=== PATIENT | male | born 1950 | race Caucasian/White ===

== ENCOUNTER 2020-06-07 22:31 | Inpatient (IN) ==
[2020-06-08] MEDS ORDERED: Ipratropium/Albuterol Neb 3 ML IH ONE ×2 (00:42→08:00)
[2020-06-08] MEDS ORDERED: 0.9 % Sodium Chloride 1,000 ML IVC SCH (00:45)
[2020-06-08] MEDS ORDERED: Acetaminophen 325 MG TABLET PO PRN (00:45)
[2020-06-08] MEDS ORDERED: Naloxone 0.4 MG/ML INJ IVP PRN (00:45)
[2020-06-08] MEDS ORDERED: *HR* Promethazine 25 MG/ML VIAL IVP PRN (00:45)
[2020-06-08 02:30] LABS: Basophils # 0.1 K/mcL (0.0-0.2); Basophils % 0.5 %; Eosinophils # 0.1 K/mcL (0.0-0.6); Eosinophils % 0.9 %; Hematocrit 35.5 % (37.5-50.1); Hemoglobin 10.9 g/dL (12.9-16.9); Immature Granulocytes % 0.8 % (0-4); Lymphocytes # 0.4 K/mcL (0.6-4.6); Lymphocytes % 3.4 %; Mean Corpuscular HGB Conc 30.7 g/dL (31.6-35.5); Mean Corpuscular Hemoglobin 29.9 pg (28.0-33.3); Mean Corpuscular Volume 97.3 fL (83.0-100.0); Mean Platelet Volume 9.8 fL (9.4-12.4); Monocytes % 9.3 %; Neutrophils # 8.7 K/mcL (1.6-8.9); Platelet Count 272 K/mcL (140-400); Red Blood Count 3.65 M/mcL (4.19-5.50); Red Cell Distribution Width 13.2 % (11.5-14.5); Segmented Neutrophils % 85.1 %; White Blood Count 10.3 K/mcL (4.3-11.1)
[2020-06-08 02:46] LABS: Alanine Aminotransferase 14 Units/L (7-52); Albumin 2.8 g/dL (3.5-5.7); Albumin/Globulin Ratio 0.9 (1.1-2.2); Alkaline Phosphatase 124 Units/L (34-104); Aspartate Amino Transferase 16 Units/L (13-39); BUN/Creatinine Ratio 24 (6-26); Bilirubin,Total 0.5 mg/dL (0.3-1.0); Blood Urea Nitrogen 12 mg/dL (8-23); Calcium 8.7 mg/dL (8.6-10.3); Carbon Dioxide 27 mEq/L (23-29); Chloride 99 mEq/L (98-107); Globulin 3.2 g/dL (2.4-3.5); Glucose 108 mg/dL (70-105); Magnesium 1.7 mg/dL (1.6-2.6); Osmolality,Calculated 278 (280-300); Potassium 3.5 mEq/L (3.5-5.1); Sodium 134 mEq/L (136-145); eGFR For African Americans > 60 (> 60); eGFR For Non-African Americans > 60 (> 60)
[2020-06-08] MEDS ORDERED: *HR* OxyCODONE/APAP 10/325 TABLET PO PRN (03:50)
[2020-06-08] MEDS: methylPREDNISolone 125 MG/2 ML VIAL IVP SCH ×3 (04:19→15:42)
[2020-06-08] MEDS: Levalbuterol Neb 1.25 MG/3 ML IH SCH ×6 (04:55→23:35)
[2020-06-08] MEDS ORDERED: *HR* OxyCODONE/APAP 10/325 TABLET PO SCH (06:00)
[2020-06-08] MEDS ORDERED: 0.9 % Sodium Chloride 1,000 ML IV ONE (07:05)
[2020-06-08] MEDS ORDERED: Furosemide 40 MG/4 ML VIAL ONE (07:21)
[2020-06-08] MEDS ORDERED: Furosemide 40 MG/4 ML VIAL IVP ONE (07:24)
[2020-06-08] MEDS ORDERED: Ipratropium/Albuterol Neb 3 ML ONE (07:29)
[2020-06-08 07:32] LABS: ABG Base Excess 1 mEq/L (-2 to 3); ABG HCO3 31 mEq/L (21-27); ABG Oxygen Saturation 99 % (95-98); ABG PCO2 79 mmHg (35-45); ABG PO2 157 mmHg (85-104); ABG TCO2 33 mEq/L (20-26)
[2020-06-08 07:34] LABS: BUN/Creatinine Ratio 26 (6-26); Blood Urea Nitrogen 13 mg/dL (8-23); Carbon Dioxide 29 mEq/L (23-29); Chloride 100 mEq/L (98-107); Glucose 124 mg/dL (70-105); Osmolality,Calculated 284 (280-300); Potassium 4.2 mEq/L (3.5-5.1); Sodium 136 mEq/L (136-145); eGFR For African Americans > 60 (> 60); eGFR For Non-African Americans > 60 (> 60)
[2020-06-08] MEDS ORDERED: DilTIAZem 50 MG in 0.9 % Sodium Chloride 40 ML IVC SCH (07:45)
[2020-06-08] MEDS ORDERED: Dexmedetomidine HCl 400 MCG/100 ML MLS IVC ONE (07:59)
[2020-06-08] MEDS: DilTIAZem 50 MG/50 ML IV.SOLN IVC SCH ×2 (08:00→21:30)
[2020-06-08] MEDS ORDERED: Perflutren Lipid Microsphere 1.3 ML in 0.9 % Sodium Chloride 8.7 ML IVP PRN (08:33)
[2020-06-08 08:45] LABS: Troponin I 0.04 ng/mL (< 0.04)
[2020-06-08] MEDS ORDERED: *HR* Enoxaparin 40 MG/0.4 ML SYRINGE SQ SCH (09:00)
[2020-06-08] MEDS: FentaNYL (PF) 1,000 MCG/100 ML IV.SOLN IVC SCH ×2 (10:00→19:34)
[2020-06-08] MEDS ORDERED: *HR* Midazolam HCl 5 MG/5 ML VIAL IVP ONE ×3 (10:18→14:37)
[2020-06-08] MEDS ORDERED: *HR* Rocuronium Bromide 50 MG/5 ML VIAL ONE (10:22)
[2020-06-08] MEDS: Piperacillin/Tazobactam 3.375 GM in 0.9 % Sodium Chloride Mini Bag 100 ML IVPB SCH ×2 (10:22→15:43)
[2020-06-08] MEDS ORDERED: *HR* Rocuronium Bromide 50 MG/5 ML VIAL IVP ONE ×2 (10:30→13:30)
[2020-06-08 10:38] LABS: Hematocrit 35.7 % (37.5-50.1); Hemoglobin 11.3 g/dL (12.9-16.9); Mean Corpuscular HGB Conc 31.7 g/dL (31.6-35.5); Mean Corpuscular Hemoglobin 30.9 pg (28.0-33.3); Mean Corpuscular Volume 97.5 fL (83.0-100.0); Mean Platelet Volume 9.9 fL (9.4-12.4); Monocytes # 0.1 K/mcL (0.0-1.3); Platelet Count 244 K/mcL (140-400); Red Blood Count 3.66 M/mcL (4.19-5.50); Red Cell Distribution Width 13.3 % (11.5-14.5); White Blood Count 10.6 K/mcL (4.3-11.1)
[2020-06-08 11:13] LABS: ABG Base Excess 5 mEq/L (-2 to 3); ABG HCO3 30 mEq/L (21-27); ABG Oxygen Saturation 100 % (95-98); ABG PCO2 49 mmHg (35-45); ABG PO2 444 mmHg (85-104); ABG TCO2 32 mEq/L (20-26); Blood Gas VT 480 cc
[2020-06-08] MEDS ORDERED: Artificial Tears SOLN 15 ML BOTTLE BOTH EYES PRN (11:16)
[2020-06-08 11:21] LABS: Lymphocytes # 0.2 K/mcL (0.6-4.6); Neutrophils # 10.3 K/mcL (1.6-8.9)
[2020-06-08 11:22] LABS: Platelet Estimate Normal (Normal)
[2020-06-08 11:23] LABS: Toxic Granulation Present (Not Present)
[2020-06-08] MEDS ORDERED: *HR* Heparin 5,000 UNIT/ML VIAL IVP PRN ×2 (11:38)
[2020-06-08] MEDS: Artificial Tears SOLN 15 ML BOTTLE BOTH EYES SCH ×3 (12:10→19:41)
[2020-06-08] MEDS: Azithromycin 500 MG in 0.9 % Sodium Chloride 250 ML IVPB SCH (12:10)
[2020-06-08] MEDS: Heparin 25,000 UNIT/250 ML D5W 25,000 UNIT/250 ML IV.SOLN IVC SCH (12:38)
[2020-06-08] MEDS: Aspirin 81 MG TAB.CHEW PO SCH (12:47)
[2020-06-08] MEDS ORDERED: D5% in Water 1,000 ML IVC PRN (13:20)
[2020-06-08] MEDS ORDERED: *HR* Dextrose 50 % in Water (Vial) 50 ML VIAL IVP PRN (13:20)
[2020-06-08] MEDS ORDERED: Dextrose Gel 15 GM/37.5 ML TUBE PO PRN ×2 (13:20)
[2020-06-08] MEDS ORDERED: *HR* Midazolam HCl 2 MG/2 ML VIAL IVP ONE (13:30)
[2020-06-08] MEDS ORDERED: *HR* Etomidate 20 MG/10 ML AMPUL IVP ONE (13:30)
[2020-06-08 13:39] LABS: Heparin anti-factor XA UFH 0.23 IU/mL (0.30-0.70)
[2020-06-08 13:40] LABS: Prothrombin Time 11.5 Seconds (9.4-12.1)
[2020-06-08] MEDS: Dexmedetomidine HCl 400 MCG/100 ML MLS IVC SCH (16:55)
[2020-06-08 17:19] LABS: Source of Body Fluid RIGHT LOWER LOBE LUN
[2020-06-08 17:20] LABS: Appearance of Body Fluid Slightly Hazy (Clear); Volume of Body Fluid 20 mL
[2020-06-08] MEDS: Insulin LISPRO 300 UNITS/3 ML VIAL SQ SCH (18:21)
[2020-06-08] MEDS: Norepinephrine 4 MG/254 ML IV.SOLN IVC SCH (19:37)
[2020-06-08] MEDS: Chlorhexidine Rinse 15 ML MOUTHWASH MM SCH (19:41)
[2020-06-08] MEDS: Furosemide 40 MG/4 ML VIAL IVP SCH (19:54)
[2020-06-08] MEDS ORDERED: Mirtazapine 15 MG TABLET PO SCH (21:00)
[2020-06-08 22:37] LABS: BUN/Creatinine Ratio 30 (6-26); Blood Urea Nitrogen 17 mg/dL (8-23); Calcium 9.2 mg/dL (8.6-10.3); Carbon Dioxide 29 mEq/L (23-29); Chloride 98 mEq/L (98-107); Glucose 137 mg/dL (70-105); Magnesium 1.6 mg/dL (1.6-2.6); Osmolality,Calculated 288 (280-300); Potassium 3.5 mEq/L (3.5-5.1); Sodium 137 mEq/L (136-145); eGFR For African Americans > 60 (> 60); eGFR For Non-African Americans > 60 (> 60)
[2020-06-08] MEDS ORDERED: Potassium Chloride 20 MEQ, Lidocaine 1% 2 ML in 0.9 % Sodium Chloride 250 ML IVPB ONE (22:48)
[2020-06-09] MEDS: methylPREDNISolone 125 MG/2 ML VIAL IVP SCH ×3 (00:15→16:01)
[2020-06-09] MEDS: Piperacillin/Tazobactam 3.375 GM in 0.9 % Sodium Chloride Mini Bag 100 ML IVPB SCH ×3 (00:16→16:05)
[2020-06-09] MEDS: Artificial Tears SOLN 15 ML BOTTLE BOTH EYES SCH ×6 (00:17→20:40)
[2020-06-09] MEDS: Insulin LISPRO 300 UNITS/3 ML VIAL SQ SCH ×4 (00:17→17:48)
[2020-06-09] MEDS: DilTIAZem 50 MG/50 ML IV.SOLN IVC SCH ×2 (02:31→13:32)
[2020-06-09] MEDS: Dexmedetomidine HCl 400 MCG/100 ML MLS IVC SCH (02:59)
[2020-06-09 03:14] LABS: Basophils % 0.1 %; Hematocrit 33.5 % (37.5-50.1); Hemoglobin 10.6 g/dL (12.9-16.9); Immature Granulocytes % 0.6 % (0-4); Lymphocytes # 0.1 K/mcL (0.6-4.6); Lymphocytes % 1.4 %; Mean Corpuscular HGB Conc 31.6 g/dL (31.6-35.5); Mean Corpuscular Hemoglobin 30.9 pg (28.0-33.3); Mean Corpuscular Volume 97.7 fL (83.0-100.0); Monocytes # 0.2 K/mcL (0.0-1.3); Monocytes % 1.8 %; Platelet Count 214 K/mcL (140-400); Red Blood Count 3.43 M/mcL (4.19-5.50); Red Cell Distribution Width 13.2 % (11.5-14.5); Segmented Neutrophils % 96.1 %; White Blood Count 8.9 K/mcL (4.3-11.1)
[2020-06-09] MEDS: Levalbuterol Neb 1.25 MG/3 ML IH SCH ×6 (03:21→23:42)
[2020-06-09 03:29] LABS: Alanine Aminotransferase 11 Units/L (7-52); Albumin 2.7 g/dL (3.5-5.7); Albumin/Globulin Ratio 0.9 (1.1-2.2); Alkaline Phosphatase 110 Units/L (34-104); Aspartate Amino Transferase 15 Units/L (13-39); BUN/Creatinine Ratio 33 (6-26); Bilirubin,Total 0.5 mg/dL (0.3-1.0); Blood Urea Nitrogen 18 mg/dL (8-23); Calcium 9.1 mg/dL (8.6-10.3); Carbon Dioxide 28 mEq/L (23-29); Chloride 99 mEq/L (98-107); Glucose 140 mg/dL (70-105); Magnesium 2.1 mg/dL (1.6-2.6); Osmolality,Calculated 288 (280-300); Phosphorous 3.7 mg/dL (2.7-4.5); Potassium 3.8 mEq/L (3.5-5.1); Sodium 137 mEq/L (136-145); Total Protein 5.7 g/dL (6.4-8.9); eGFR For African Americans > 60 (> 60); eGFR For Non-African Americans > 60 (> 60)
[2020-06-09 03:34] LABS: Neutrophils # 8.6 K/mcL (1.6-8.9)
[2020-06-09 04:53] LABS: ABG Base Excess 4 mEq/L (-2 to 3); ABG HCO3 29 mEq/L (21-27); ABG Oxygen Saturation 90 % (95-98); ABG PCO2 43 mmHg (35-45); ABG PH 7.44 pH Units (7.32-7.45); ABG PO2 57 mmHg (85-104); ABG TCO2 30 mEq/L (20-26); Blood Gas Modality ASSIST CONTROL; Blood Gas VT 480 cc
[2020-06-09] MEDS: FentaNYL (PF) 1,000 MCG/100 ML IV.SOLN IVC SCH ×2 (05:13→11:45)
[2020-06-09] MEDS: Chlorhexidine Rinse 15 ML MOUTHWASH MM SCH ×2 (08:58→20:36)
[2020-06-09 10:14] LABS: Lactate Dehydrogenase 229 Units/L (140-271)
[2020-06-09] MEDS: Aspirin 81 MG TAB.CHEW PO SCH (10:40)
[2020-06-09 11:02] LABS: RBC,Pleural Fluid 3000 RBC/mcL
[2020-06-09 11:21] LABS: Total Protein,Pleural Fluid 3.2 g/dL
[2020-06-09 11:27] LABS: Appearance of Pleural Fl Cloudy (Clear)
[2020-06-09] MEDS: Azithromycin 500 MG in 0.9 % Sodium Chloride 250 ML IVPB SCH (13:59)
[2020-06-09] MEDS ORDERED: *HR* Heparin 5,000 UNIT/ML VIAL SQ SCH (14:00)
[2020-06-09] MEDS: Norepinephrine 4 MG/254 ML IV.SOLN IVC SCH (16:00)
[2020-06-09] MEDS ORDERED: Naloxone 0.4 MG/ML INJ IVP PRN (17:21)
[2020-06-09] MEDS ORDERED: D5% in Water 1,000 ML IVC PRN (17:21)
[2020-06-09] MEDS ORDERED: Acetaminophen 325 MG TABLET PO PRN (17:21)
[2020-06-09] MEDS ORDERED: Norepinephrine 4 MG/254 ML IV.SOLN IVC SCH (17:21)
[2020-06-09] MEDS ORDERED: Artificial Tears SOLN 15 ML BOTTLE BOTH EYES PRN (17:21)
[2020-06-09] MEDS ORDERED: Dextrose Gel 15 GM/37.5 ML TUBE PO PRN ×2 (17:21)
[2020-06-09] MEDS ORDERED: *HR* Dextrose 50 % in Water (Vial) 50 ML VIAL IVP PRN (17:21)
[2020-06-09] MEDS ORDERED: *HR* Promethazine 25 MG/ML VIAL IVP PRN (17:21)
[2020-06-09] MEDS: *HR* OxyCODONE/APAP 10/325 TABLET PO PRN (17:51)
[2020-06-09] MEDS: Mirtazapine 15 MG TABLET PO SCH (20:35)
[2020-06-09] MEDS: *HR* Heparin 5,000 UNIT/ML VIAL SQ SCH (20:35)
[2020-06-09] MEDS: Nicotine 21 MG PATCH.TD24 TD SCH (20:48)
[2020-06-10] MEDS: DilTIAZem 50 MG/50 ML IV.SOLN IVC SCH ×3 (00:05→17:32)
[2020-06-10] MEDS: Piperacillin/Tazobactam 3.375 GM in 0.9 % Sodium Chloride Mini Bag 100 ML IVPB SCH ×3 (00:08→17:08)
[2020-06-10] MEDS: methylPREDNISolone 125 MG/2 ML VIAL IVP SCH ×3 (00:09→17:07)
[2020-06-10] MEDS: Artificial Tears SOLN 15 ML BOTTLE BOTH EYES SCH ×5 (00:24→17:38)
[2020-06-10] MEDS: Insulin LISPRO 300 UNITS/3 ML VIAL SQ SCH ×3 (00:52→13:17)
[2020-06-10] MEDS: Levalbuterol Neb 1.25 MG/3 ML IH SCH ×5 (03:49→19:53)
[2020-06-10] MEDS: *HR* OxyCODONE/APAP 10/325 TABLET PO PRN ×2 (05:35→21:10)
[2020-06-10] MEDS: *HR* Heparin 5,000 UNIT/ML VIAL SQ SCH ×3 (05:35→20:59)
[2020-06-10] MEDS: Heparin 25,000 UNIT/250 ML D5W 25,000 UNIT/250 ML IV.SOLN IVC SCH (07:35)
[2020-06-10] MEDS: Furosemide 40 MG/4 ML VIAL IVP SCH (07:35)
[2020-06-10] MEDS: Sennosides 8.6 MG TABLET PO SCH (08:07)
[2020-06-10] MEDS: Nicotine 21 MG PATCH.TD24 TD SCH (08:08)
[2020-06-10] MEDS: Aspirin 81 MG TAB.CHEW PO SCH (08:08)
[2020-06-10] MEDS: Chlorhexidine Rinse 15 ML MOUTHWASH MM SCH (08:09)
[2020-06-10] MEDS ORDERED: Sennosides 8.6 MG TABLET PO SCH (09:00)
[2020-06-10 09:24] LABS: Basophils % 0.1 %; Hematocrit 33.6 % (37.5-50.1); Hemoglobin 10.6 g/dL (12.9-16.9); Immature Granulocytes % 0.9 % (0-4); Lymphocytes # 0.1 K/mcL (0.6-4.6); Lymphocytes % 0.7 %; Mean Corpuscular HGB Conc 31.5 g/dL (31.6-35.5); Mean Corpuscular Hemoglobin 30.5 pg (28.0-33.3); Mean Corpuscular Volume 96.8 fL (83.0-100.0); Mean Platelet Volume 9.8 fL (9.4-12.4); Monocytes # 0.2 K/mcL (0.0-1.3); Monocytes % 1.7 %; Neutrophils # 11.8 K/mcL (1.6-8.9); Platelet Count 261 K/mcL (140-400); Red Blood Count 3.47 M/mcL (4.19-5.50); Red Cell Distribution Width 13.4 % (11.5-14.5); Segmented Neutrophils % 96.6 %; White Blood Count 12.2 K/mcL (4.3-11.1)
[2020-06-10 09:44] LABS: BUN/Creatinine Ratio 44 (6-26); Blood Urea Nitrogen 27 mg/dL (8-23); Carbon Dioxide 27 mEq/L (23-29); Chloride 101 mEq/L (98-107); Glucose 149 mg/dL (70-105); Osmolality,Calculated 290 (280-300); Potassium 3.4 mEq/L (3.5-5.1); Sodium 136 mEq/L (136-145); eGFR For African Americans > 60 (> 60); eGFR For Non-African Americans > 60 (> 60)
[2020-06-10 09:52] LABS: Platelet Estimate Normal (Normal); Toxic Granulation Present (Not Present)
[2020-06-10] MEDS ORDERED: Azithromycin 500 MG in 0.9 % Sodium Chloride 250 ML IVPB SCH (12:00)
[2020-06-10] MEDS: Metoprolol XL (24 HR) Succ 25 MG TAB.ER.24H PO SCH (17:07)
[2020-06-10] MEDS: Morphine Sulfate ER (12 HR) 15 MG TABLET.ER PO SCH (17:07)
[2020-06-10] MEDS: Vancomycin 1,250 MG/262.5 ML IV.SOLN IVPB SCH (17:19)
[2020-06-10] MEDS: Ipratropium/Albuterol Neb 3 ML IH SCH ×2 (19:35→22:43)
[2020-06-10] MEDS: Mirtazapine 15 MG TABLET PO SCH (20:59)
[2020-06-10] MEDS ORDERED: DilTIAZem 50 MG in 0.9 % Sodium Chloride 40 ML IVC SCH (22:30)
[2020-06-11] MEDS: Piperacillin/Tazobactam 3.375 GM in 0.9 % Sodium Chloride Mini Bag 100 ML IVPB SCH ×3 (00:22→17:38)
[2020-06-11] MEDS: methylPREDNISolone 125 MG/2 ML VIAL IVP SCH ×3 (00:22→17:39)
[2020-06-11] MEDS: Ipratropium/Albuterol Neb 3 ML IH SCH ×4 (03:17→22:05)
[2020-06-11] MEDS: Vancomycin 1,250 MG/262.5 ML IV.SOLN IVPB SCH ×2 (04:15→17:38)
[2020-06-11 05:23] LABS: BUN/Creatinine Ratio 42 (6-26); Blood Urea Nitrogen 19 mg/dL (8-23); Calcium 8.8 mg/dL (8.6-10.3); Carbon Dioxide 30 mEq/L (23-29); Chloride 105 mEq/L (98-107); Glucose 125 mg/dL (70-105); Osmolality,Calculated 296 (280-300); Potassium 3.3 mEq/L (3.5-5.1); Sodium 141 mEq/L (136-145); eGFR For African Americans > 60 (> 60); eGFR For Non-African Americans > 60 (> 60)
[2020-06-11] MEDS: Morphine Sulfate ER (12 HR) 15 MG TABLET.ER PO SCH ×2 (05:47→17:37)
[2020-06-11] MEDS: *HR* Heparin 5,000 UNIT/ML VIAL SQ SCH ×3 (05:47→20:17)
[2020-06-11] MEDS: Folic Acid 1 MG TABLET PO SCH (08:27)
[2020-06-11] MEDS: *HR* OxyCODONE/APAP 10/325 TABLET PO PRN ×2 (08:28→18:27)
[2020-06-11] MEDS: Metoprolol XL (24 HR) Succ 25 MG TAB.ER.24H PO SCH (08:29)
[2020-06-11] MEDS: Potassium Chloride Elixir 20 MEQ/15 ML UDC PO SCH (08:30)
[2020-06-11] MEDS: Sennosides 8.6 MG TABLET PO SCH (08:32)
[2020-06-11] MEDS: Aspirin 81 MG TAB.CHEW PO SCH (08:35)
[2020-06-11] MEDS: Nicotine 21 MG PATCH.TD24 TD SCH (08:35)
[2020-06-11] MEDS: Morphine Sulfate Oral CONC 10 MG/0.5 ML ORAL.SYG SL PRN ×4 (10:52→20:43)
[2020-06-11 14:14] LABS: Hematocrit 33.4 % (37.5-50.1); Hemoglobin 10.5 g/dL (12.9-16.9); Lymphocytes # 0.1 K/mcL (0.6-4.6); Lymphocytes % 0.8 %; Mean Corpuscular HGB Conc 31.4 g/dL (31.6-35.5); Mean Corpuscular Hemoglobin 31.2 pg (28.0-33.3); Mean Corpuscular Volume 99.1 fL (83.0-100.0); Mean Platelet Volume 9.6 fL (9.4-12.4); Monocytes # 0.3 K/mcL (0.0-1.3); Monocytes % 2.6 %; Neutrophils # 9.5 K/mcL (1.6-8.9); Platelet Count 224 K/mcL (140-400); Red Blood Count 3.37 M/mcL (4.19-5.50); Red Cell Distribution Width 13.4 % (11.5-14.5); Segmented Neutrophils % 95.6 %; White Blood Count 9.9 K/mcL (4.3-11.1)
[2020-06-11 14:41] LABS: Platelet Estimate Normal (Normal)
[2020-06-11] MEDS: Mirtazapine 15 MG TABLET PO SCH (20:17)
[2020-06-12] MEDS: methylPREDNISolone 125 MG/2 ML VIAL IVP SCH ×3 (00:36→16:00)
[2020-06-12] MEDS: Piperacillin/Tazobactam 3.375 GM in 0.9 % Sodium Chloride Mini Bag 100 ML IVPB SCH ×3 (00:37→16:00)
[2020-06-12] MEDS: Ipratropium/Albuterol Neb 3 ML IH SCH ×4 (03:20→23:25)
[2020-06-12] MEDS: Vancomycin 1,250 MG/262.5 ML IV.SOLN IVPB SCH ×2 (04:20→16:01)
[2020-06-12] MEDS: Morphine Sulfate ER (12 HR) 15 MG TABLET.ER PO SCH ×2 (05:00→17:44)
[2020-06-12] MEDS: *HR* Heparin 5,000 UNIT/ML VIAL SQ SCH ×3 (05:00→19:45)
[2020-06-12 06:08] LABS: BUN/Creatinine Ratio 38 (6-26); Blood Urea Nitrogen 16 mg/dL (8-23); Calcium 8.4 mg/dL (8.6-10.3); Carbon Dioxide 32 mEq/L (23-29); Chloride 102 mEq/L (98-107); Glucose 122 mg/dL (70-105); Osmolality,Calculated 286 (280-300); Potassium 3.7 mEq/L (3.5-5.1); Sodium 137 mEq/L (136-145); eGFR For African Americans > 60 (> 60); eGFR For Non-African Americans > 60 (> 60)
[2020-06-12] MEDS: Morphine Sulfate Oral CONC 10 MG/0.5 ML ORAL.SYG SL PRN ×6 (07:46→17:43)
[2020-06-12] MEDS: Sennosides 8.6 MG TABLET PO SCH (07:48)
[2020-06-12] MEDS: Folic Acid 1 MG TABLET PO SCH (07:48)
[2020-06-12] MEDS: *HR* OxyCODONE/APAP 10/325 TABLET PO PRN (07:48)
[2020-06-12] MEDS: Metoprolol XL (24 HR) Succ 25 MG TAB.ER.24H PO SCH (07:49)
[2020-06-12] MEDS: Aspirin 81 MG TAB.CHEW PO SCH (07:50)
[2020-06-12] MEDS: Potassium Chloride Elixir 20 MEQ/15 ML UDC PO SCH (07:50)
[2020-06-12] MEDS: Nicotine 21 MG PATCH.TD24 TD SCH (07:50)
[2020-06-12 09:50] LABS: Basophils % 0.1 %; Hemoglobin 10.7 g/dL (12.9-16.9); Immature Granulocytes % 0.9 % (0-4); Lymphocytes # 0.1 K/mcL (0.6-4.6); Lymphocytes % 0.7 %; Mean Corpuscular HGB Conc 31.5 g/dL (31.6-35.5); Mean Corpuscular Hemoglobin 31.2 pg (28.0-33.3); Mean Corpuscular Volume 99.1 fL (83.0-100.0); Mean Platelet Volume 9.8 fL (9.4-12.4); Monocytes # 0.2 K/mcL (0.0-1.3); Monocytes % 1.7 %; Neutrophils # 9.5 K/mcL (1.6-8.9); Platelet Count 204 K/mcL (140-400); Red Blood Count 3.43 M/mcL (4.19-5.50); Red Cell Distribution Width 13.2 % (11.5-14.5); Segmented Neutrophils % 96.6 %; White Blood Count 9.8 K/mcL (4.3-11.1)
[2020-06-12 12:31] LABS: Platelet Estimate Normal (Normal)
[2020-06-12] MEDS ORDERED: Aminoglycoside Consult 1 EACH MC ONE (15:54)
[2020-06-12] MEDS ORDERED: Ipratropium/Albuterol Neb 3 ML IH ONE (18:26)
[2020-06-12] MEDS: *HR* LORazepam Oral Conc 2 MG/ML SL PRN (18:48)
[2020-06-12] MEDS: Mirtazapine 15 MG TABLET PO SCH (19:45)
[2020-06-12] MEDS ORDERED: *HR* Metoprolol 5 MG/5 ML VIAL IVP ONE (23:04)
[2020-06-13] MEDS: Piperacillin/Tazobactam 3.375 GM in 0.9 % Sodium Chloride Mini Bag 100 ML IVPB SCH (00:01)
[2020-06-13] MEDS: Ipratropium/Albuterol Neb 3 ML IH SCH ×2 (03:16→10:09)
[2020-06-13] MEDS: Vancomycin 1,250 MG/262.5 ML IV.SOLN IVPB SCH (04:00)
[2020-06-13 04:37] LABS: Basophils % 0.1 %; Hematocrit 33.9 % (37.5-50.1); Hemoglobin 10.7 g/dL (12.9-16.9); Immature Granulocytes % 0.7 % (0-4); Lymphocytes # 0.1 K/mcL (0.6-4.6); Lymphocytes % 1.1 %; Mean Corpuscular HGB Conc 31.6 g/dL (31.6-35.5); Mean Corpuscular Hemoglobin 30.9 pg (28.0-33.3); Mean Platelet Volume 10.1 fL (9.4-12.4); Monocytes # 0.2 K/mcL (0.0-1.3); Monocytes % 2.2 %; Neutrophils # 6.9 K/mcL (1.6-8.9); Platelet Count 188 K/mcL (140-400); Red Blood Count 3.46 M/mcL (4.19-5.50); Red Cell Distribution Width 13.1 % (11.5-14.5); Segmented Neutrophils % 95.9 %; White Blood Count 7.2 K/mcL (4.3-11.1)
[2020-06-13 05:01] LABS: BUN/Creatinine Ratio 33 (6-26); Blood Urea Nitrogen 13 mg/dL (8-23); Calcium 8.8 mg/dL (8.6-10.3); Carbon Dioxide 35 mEq/L (23-29); Chloride 100 mEq/L (98-107); Glucose 103 mg/dL (70-105); Osmolality,Calculated 286 (280-300); Potassium 3.4 mEq/L (3.5-5.1); Sodium 138 mEq/L (136-145); eGFR For African Americans > 60 (> 60); eGFR For Non-African Americans > 60 (> 60)
[2020-06-13] MEDS: *HR* Heparin 5,000 UNIT/ML VIAL SQ SCH ×2 (05:21→14:46)
[2020-06-13] MEDS: Morphine Sulfate ER (12 HR) 15 MG TABLET.ER PO SCH ×2 (05:22→08:46)
[2020-06-13 05:41] LABS: Platelet Estimate Normal (Normal)
[2020-06-13] MEDS: methylPREDNISolone 125 MG/2 ML VIAL IVP SCH ×2 (07:19)
[2020-06-13] MEDS: *HR* LORazepam Oral Conc 2 MG/ML SL PRN ×2 (07:20→14:51)
[2020-06-13] MEDS: Morphine Sulfate Oral CONC 10 MG/0.5 ML ORAL.SYG SL PRN ×7 (07:20→15:04)
[2020-06-13 09:34] VITALS: BP 106/60
[2020-06-13] MEDS: Nicotine 21 MG PATCH.TD24 TD SCH (13:25)
[2020-06-13] MEDS: Potassium Chloride Elixir 20 MEQ/15 ML UDC PO SCH (13:26)
[2020-06-13] MEDS: Sennosides 8.6 MG TABLET PO SCH (13:26)
[2020-06-13] MEDS: Metoprolol XL (24 HR) Succ 25 MG TAB.ER.24H PO SCH (13:26)
== END 2020-06-13 15:55 | disposition hospice, home (50) | DRG 871 ==
LOC: 3ANU → ICNU 06-08 07:46 → SUATTDRO 06-08 10:15 → 2ANU 06-09 19:40
PROVIDERS: ADMIT Student in an Organized Health Care Education/Training Program; ATTEND Family Medicine